=== PATIENT | female | born 1975 | race Caucasian/White ===

== ENCOUNTER 2018-11-16 12:47 | Emergency (ER) | payer OTHER ==
[~2018-11-16] VITALS: Ht 172.7 cm; Wt 93.9 kg
[2018-11-16 13:57] VITALS: Ht 172.7 cm; Wt 93.9 kg
[2018-11-16 16:33] VITALS: BP 124/79
== END 2018-11-16 16:33 | disposition home or self-care (01) ==
LOC: ED 12:47
DX: S40.012A Contusion of left shoulder, initial encounter (principal); S09.8XXA Other specified injuries of head, initial encounter; M54.2 Cervicalgia; J45.909 Unspecified asthma, uncomplicated; M79.7 Fibromyalgia; Z95.0 Presence of cardiac pacemaker; W22.09XA Striking against other stationary object, initial encounter; Y93.89 Activity, other specified; Y92.89 Other specified places as the place of occurrence of the external cause; Y99.8 Other external cause status